=== PATIENT | female | born 2005 | race Caucasian/White ===

== ENCOUNTER 2025-01-08 12:54 | Emergency (ER) | payer MEDICAID ==
[~2025-01-08] VITALS: Ht 157.5 cm; Wt 63.5 kg
[2025-01-08 13:14] VITALS: BP 141/71; TEMP 98.3
[2025-01-08] MEDS ORDERED: METH-647 PO (13:36)
[2025-01-08] MEDS ORDERED: IBUP-1957 PO (13:36)
[2025-01-08 14:10] VITALS: O2SAT 97
== END 2025-01-08 15:51 | disposition home or self-care (01) ==
LOC: ER 13:09
DX: M54.50 Low back pain, unspecified (principal); G89.29 Other chronic pain; R03.0 Elevated blood-pressure reading, without diagnosis of hypertension